=== PATIENT | male | born 1950 | race Caucasian/White ===

== ENCOUNTER 2024-11-24 12:11 | Inpatient (IN) | payer MEDICARE, OTHER ==
[~2024-11-24] VITALS: Ht 188 cm; Wt 102.3 kg
[~2024-11-24 12:11] MED LIST: ALLO-52 PO; AML5T PO; ASPI1TAB20 PO; CELE200C PO; ESOM40CA39 PO; FEXO-226 PO; LISI40TA16 PO; MET50T PO; SIMV20TA20 PO; TERA5CAP58 PO
--- NOTE | 2024-11-24 12:37 | ED.PDOC ---
SOB-HPI HPI Comments HPI: 74 y/o M, presents to the ED for CC of flu-like symptoms. Patient states, that he has been experiencing flu-like symptoms with associated symptoms of cough, fever, and weakness x3days. Patient comments on, believing he has COVID; denies any recent travel or exposure. Patient denies shortness of breath, chest pain, nasal congestion, sore throat, or N/V/D. No other symptoms or modifying factors at this time. Patient has been taking a Z-Vlad but he does not think he has been helping. Initial Vital Signs: Temp : 98.0 BP: 13/69 HR: 85 RR: 19 SpO2: 95 Past Medical History: GOUT, HTN, HLD Past Surgical History: CKA, RIGHT KNEE Social History: OCCASIONAL ETOH Medications: ZEPACLLE NORVASC ALLOPRIN Allergies: NKDA COURTIER: HPI: Poor Historian. Past Medical History: Past Surgical History: REVIEW OF SYSTEMS: CONSTITUTIONAL: Denies acute: , diaphoresis, chills, HEAD: Denies acute: headache, photophobia Eyes: Denies acute: Double vision, vision loss, eye pain, eye discharge. EARS: Denies acute: tinnitus, hearing loss, ear discharge, ear pain, THROAT: Denies acute: sore throat, swelling, difficulty swallowing , pain with swallowing, change in voice. NECK: Denies acute: neck pain, neck swelling, stiff neck. HEART: Denies acute : chest pain, palpitations, LUNGS: Denies acute: SOB, wheezing, hemoptysis ABDOMEN: Denies acute: abdominal pain, Nausea, Vomiting, diarrhea, melena , hematemesis, hematochezia SKIN: Denies acute: rash, redness, lesions, itchiness. EXTREMITIES: Denies acute: calf pain, numbness, tingling, weakness, denies pain in extremity. Denies acute: Low back pain. Neuro: Denies acute: focal neurological deficit, motor or sensory focal neurological deficit, tremors, seizure like activity, confusion, dizziness, change in mental status, loss of bowel or bladder function, cauda equina like symptoms. : Denies acute: dysuria, hematuria, flank pain, increase in urinary frequency. PSYCH: Denies acute: hallucination, suicidal ideation, homicidal ideation. PHYSICAL EXAM: General: no acute distress, awake and alert. Head: normocephalic, atraumatic. Neck: supple, trachea is midline, no swelling. Throat: Normal phonation. Eyes:, no erythema, no purulent discharge, no proptosis, no icterus. Heart: regular rate, regular rhythm, no significant murmur appreciated. Lungs: no apparent respiratory distress, Able to speak in full sentences. No wheezing, no rhonchi, no crackles. No stridors Clear to auscultation bilaterally. Abdomen: non tender to palpation, non distended, soft, no guarding, no rebound, + bowel sounds. Neuro: Awake, Alert, oriented to name, self, situation, follows commands GCS=15. Speech is normal. Skin: no petechia, no purpura, no cyanosis, non-pale, not jaundice. Lower extremities: --no - Pitting edema no deformity, no focal swelling, no calf TTP. Makes eye contact. moves all four extremities. Face: no apparent facial droop. Ambulating in the ED independently. ED COURSE: Chief Complaint: Flu like Time Seen by MD: 12:30 Reviewed notes: Nurses Notes, Allergies Information Source: Patient Mode of Arrival: Ambulatory Severity: Moderate Timing: Days Duration: Since onset PE Risk Factors: None History of: None Prehospital treatment: None Associated Signs and Symptoms: Fever, Cough If cough with SOB: Non-Productive Was a procedure done? Was a procedure done?: No Differential Dx Differential Diagnosis: Asthma, Bronchitis, CHF, COPD, Hyperventilation, Pne umonia, Pneumothorax, Pulmonary Embolism, Respiratory Distress, Sinusitis, Allergic Rhinitis, Pharyngitis, URI X-Ray, Labs, Meds, VS Vital Signs Date Time Temp Pulse Resp B/P (MAP) Pulse Ox O2 Delivery O2 Flow Rate FiO2 11/24/24 12:44 98.0 85 19 137/69 (91) 95 Lab Test 11/24/24 15:20 11/24/24 13:13 11/24/24 13:03 11/24/24 12:37 Range/Units Troponin I High Sensitivity 6 6 </=54 ng/L White Blood Count 8.9 4.4-10.8 10^3/uL Red Blood Count 4.30 L 4.5-5.90 10^6/uL Hemoglobin 14.0 13.5-17.5 g/dL Hematocrit 41.8 41.0-53.0 % Mean Corpuscular Volume 97.2 80.0-100.0 fL Mean Corpuscular Hemoglobin 32.7 H 28.0-32.0 pg Mean Corpuscular Hemoglobin Concent 33.6 32.0-36.0 g/dL Red Cell Distribution Width 13.6 11.8-14.3 % Platelet Count 231 140-450 10^3/uL Mean Platelet Volume 9.1 6.9-10.8 fL Neutrophils (%) (Auto) 75.3 37.0-80.0 % Lymphocytes (%) (Auto) 11.2 10.0-50.0 % Monocytes (%) (Auto) 11.2 0.0-12.0 % Eosinophils (%) (Auto) 1.8 0.0-7.0 % Basophils (%) (Auto) 0.5 0.0-2.0 % Neutrophils # (Auto) 6.7 1.6-8.6 10 ^3/uL Lymphocytes # (Auto) 1.0 0.4-5.4 10 ^3/uL Monocytes # (Auto) 1.0 0-1.3 10 ^3/uL Eosinophils # (Auto) 0.2 0-0.8 10 ^3/uL Basophils # (Auto) 0 0-0.2 10 ^3/uL Nucleated Red Blood Cells 0.0 % Sodium Level 139 136-145 mmol/L Potassium Level 4.2 3.5-5.1 mmol/L Chloride Level 107 98-107 mmol/L Carbon Dioxide Level 21 20-31 mmol/L Anion Gap 11 5-15 Blood Urea Nitrogen 82 *H 9-23 mg/dL Creatinine 2.76 H 0.700-1.30 mg/dL Glomerular Filtration Rate Calc 24 >90 mL/min BUN/Creatinine Ratio 29.7 H 10.0-20.0 Serum Glucose 117 H 74-106 mg/dL Lactic Acid Level 1.0 0.4-2.0 mmol/L Calcium Level 9.6 8.7-10.4 mg/dL Total Bilirubin 0.3 0.2-1.0 mg/dL Aspartate Amino Transferase (AST) 22 13-40 U/L Alanine Aminotransferase (ALT) 31 7-40 U/L Alkaline Phosphatase 120 H 46-116 U/L B-Type Natriuretic Peptide 26.11 0-100 pg/mL Total Protein 7.2 5.7-8.2 g/dL Albumin 4.5 3.2-4.8 g/dL Blood Gas Specimen Type Arterial Blood Gas Sample Site Left radial Blood Gas Patient Temperature 37.0 Arterial Blood Date Drawn [id number] Arterial Blood pH 7.371 7.350-7.450 Arterial Blood Partial Pressure CO2 28.2 L 35.0-48.0 mmHg Arterial Blood Partial Pressure O2 87.4 83.0-108.0 mmHg Arterial Blood HCO3 16.0 L 21.0-28.0 mmol/L Arterial Blood Oxygen Saturation 96.5 94.0-98.0 % Arterial Blood Base Excess -7.7 L -2.0-3.0 mmol/L Arterial Blood Oxyhemoglobin 95.1 94.0-98.0 % Arterial Blood Carboxyhemoglobin 0.9 0.5-1.5 % Arterial Blood Methemoglobin 0.5 0.0-1.5 % Spenser Test Yes Blood Gas Total Hemoglobin 14.10 13.5-17.5 g/dL Blood Gas Liter Flow 0.00 Blood Gas Modality Room air FiO2 % 21.0 Influenza Type A Antigen Negative Negative Influenza Type B Antigen Negative Negative SARS-CoV-2 Antigen (Rapid) Negative NEGATIVE [place] [address] Ph: [phone] DIAGNOSTIC IMAGING Diagnostic Imaging Report : [id number] Signed PATIENT: SERGIO PALMER ACCT: [id number] UNIT: [id number] : 1950 LOC: ER ROOM / BED: / AGE / SEX: 74 / M ADM STATUS: REG ER SERVICE 1218 ORDERING PHYSICIAN: KENNEDY THOMPSON DO PROCEDURE(s): CXRP - CHEST PORTABLE REASON: cough/fever/sob ORDER NUMBER(s): [id number], ACCESSION NUMBER(s): [id number] EXAM: XY CHEST PORTABLE Indication: cough/fever/sob Technique: Single frontal view of the chest was obtained Comparison: None FINDINGS: Lines and Tubes: None Lungs: No focal consolidation. Pleura: No effusion. No pneumothorax. Cardiomediastinal contours: Unremarkable Bones: No acute osseous abnormality. IMPRESSION: No acute cardiopulmonary disease. ATED BY: AALIYAH CUEVAS MD DICTATED DATE/TIME: 11/24/24 130 SIGNED BY: AALIYAH CUEVAS MD SIGNED DATE/TIME: 11/24/24 130 CC: Time of 1ST Reevaluation: 13:00 Reevaluation 1ST: Unchanged Patient Education/Counseling: Diagnosis, Treatment Family Education/Counseling: Other Comments Patient presented with the above HPI.---cough/generalized weakness---workup was initiated. patient was found with the above mentioned diagnosis. the following medications were ordered: please refer to order lists of meds and tests obtained by myself Dr. Thompson. Patient ED course and VS have been stabilized. Patient has been reassessed in the ED and remained in a stable condition. Pertinent incidental findings were discussed with the patient and/or family. Patient/family voices understanding and is agreeable with plan. Patient has been observed in the ED adequate length of time to insure improvement/stability. Escalation of care considered: Consideration of escalation to observation or admission Patient was ADMITTED to the medicine team for further evaluation and treatment of their presentation. All the reports of any imaging studies that were ordered by myself were reviewed by myself. Departure 1 Departure Time of Disposition: 14:17 Impression: Primary Impression: Acute renal insufficiency Additional Impression: Generalized weakness Disposition: ADMITTED INPATIENT Admit to: [facility] Condition: Guarded Additional Instructions: [place] [address] Ph: [phone] DIAGNOSTIC IMAGING Diagnostic Imaging Report : [id number] Signed PATIENT: SERGIO PALMER ACCT: [id number] UNIT: [id number] : 1950 LOC: ER ROOM / BED: / AGE / SEX: 74 / M ADM STATUS: REG ER SERVICE 1218 ORDERING PHYSICIAN: KENNEDY THOMPSON DO PROCEDURE(s): CXRP - CHEST PORTABLE REASON: cough/fever/sob ORDER NUMBER(s): [id number], ACCESSION NUMBER(s): [id number] EXAM: XY CHEST PORTABLE Indication: cough/fever/sob Technique: Single frontal view of the chest was obtained Comparison: None FINDINGS: Lines and Tubes: None Lungs: No focal consolidation. Pleura: No effusion. No pneumothorax. Cardiomediastinal contours: Unremarkable Bones: No acute osseous abnormality. IMPRESSION: No acute cardiopulmonary disease. ATED BY: AALIYAH CUEVAS MD DICTATED DATE/TIME: 11/24/24 1301 SIGNED BY: AALIYAH CUEVAS MD SIGNED DATE/TIME: 11/24/24 1301 CC: Discharged With: Self Critical Care Note Critical Care Time?: No Heart Score Heart Score: Heart Score Response (Comments) Value History N/A 0 EKG N/A 0 Age N/A 0 Risk Factors N/A 0 Troponin N/A 0 Total 0 I personally scribed for KENNEDY THOMPSON DO ([email or web address]) on 11/24/24 at 12:37. Electronically submitted by Nisha Shukla ([email or web address]). I personally scribed for KENNEDY THOMPSON DO ([email or web address]) on 11/24/24 at 15:33. Electronically submitted by Nisha Shukla ([email or web address]). KENNEDY THOMPSON DO Nov 24, 2024 12:37
--- NOTE | 2024-11-24 13:02 | DVH ---
EXAM: XY CHEST PORTABLE Indication: cough/fever/sob Technique: Single frontal view of the chest was obtained Comparison: None FINDINGS: Lines and Tubes: None Lungs: No focal consolidation. Pleura: No effusion. No pneumothorax. Cardiomediastinal contours: Unremarkable Bones: No acute osseous abnormality. IMPRESSION: No acute cardiopulmonary disease.
[2024-11-24 13:07] LABS: Base Excess -7.7 mmol/L (-2.0-3.0)
[2024-11-24 13:26] LABS: COVID19 ANTIGEN SOFIA FIA NEGATIVE (NEGATIVE); Rapid Influenza A Negative (Negative); Rapid Influenza B Negative (Negative)
[2024-11-24 13:47] LABS: Basophils # (auto) 0 10 ^3/uL (0-0.2); Basophils % (auto) 0.5 % (0.0-2.0); Eosinophils # (auto) 0.2 10 ^3/uL (0-0.8); Eosinophils % (auto) 1.8 % (0.0-7.0); Hematocrit 41.8 % (41.0-53.0); Lymphocytes % (auto) 11.2 % (10.0-50.0); Mean Corpuscular Hemoglobin 32.7 pg (28.0-32.0); Mean Corpuscular Hgb Conc. 33.6 g/dL (32.0-36.0); Mean Corpuscular Volume 97.2 fL (80.0-100.0); Monocytes % (auto) 11.2 % (0.0-12.0); Neutrophils # (auto) 6.7 10 ^3/uL (1.6-8.6); Neutrophils % (auto) 75.3 % (37.0-80.0); Platelet Count (auto) 231 10^3/uL (140-450); Red Cell Distribution Width 13.6 % (11.8-14.3); White Blood Cell 8.9 10^3/uL (4.4-10.8)
[2024-11-24 13:59] LABS: Alanine Aminotransferase 31 U/L (7-40); Albumin 4.5 g/dL (3.2-4.8); Anion Gap 11 (5-15); Aspartate Aminotransferase 22 U/L (13-40); BUN/Creatinine Ratio 29.7 (10.0-20.0); Calcium 9.6 mg/dL (8.7-10.4); Carbon Dioxide 21 mmol/L (20-31); Chloride 107 mmol/L (98-107); Potassium 4.2 mmol/L (3.5-5.1); Sodium 139 mmol/L (136-145)
[2024-11-24 14:00] LABS: Bilirubin, Total 0.3 mg/dL (0.2-1.0); Total Protein 7.2 g/dL (5.7-8.2)
[2024-11-24 14:07] LABS: Alkaline Phosphatase 120 U/L (46-116); Blood Urea Nitrogen 82 mg/dL (9-23); Glucose 117 mg/dL (74-106)
[2024-11-24] MEDS: SODIUM CHLORIDE 0.9% 1,000 ML IV ONE ×2 (14:30→21:00)
[2024-11-24] MEDS: HYDROcodone-ACET 5/325MG TAB PO ONE ×2 (20:51→21:28)
[2024-11-24] MEDS ORDERED: ACETAMINOPHEN 325 MG TAB PO PRN (21:00)
--- NOTE | 2024-11-24 21:43 | DVHHPRES ---
History of Present Illness Resident Creating Document: YENNIFER FINN RESIDENT History of Present Illness This is a 74-year-old male with past medical history of hypertension, dyslipidemia, CKD, gout who presented to the ED due to flu-like symptoms. The patient reports that the symptoms started three days ago and works consistent with dry cough without sputum production associated with fever and chills. The patient also reported generalized weakness and fatigue. Patient also reports cervical pain likely due to cervical arthritis. The patient denied nausea/vomiting, chest pain, abdominal pain or any other additional symptoms. Initial labs were grossly unremarkable except for BUN and creatinine which were 82 and 2.76 respectively. Troponins came back negative, BNP was 26.4 liver function is unremarkable and COVID and flu test came back negative. Upon my examination, the patient is saturating 95% on room air, but the patient reports generalized weakness, fatigue and malaise. We start the patient on IV fluids, acetaminophen for symptom control and pain management. We will admit the patient for further assessment and management of possible upper viral respiratory infection. Past medical history: Hypertension, dyslipidemia, CKD, gout Home medications: Hydralazine 50 mg t.i.d., lisinopril 10 mg daily, amlodipine 5 mg daily, atorvastatin 40 mg daily, Jardiance 10 mg daily, aspirin 81 mg daily, clopidogrel 75 mg daily Social history: Denies smoking, alcohol or drug intake. Cardiovascular: HTN, hyperipidemia Rheumatologic: Gout Renal/: Chronic renal insuff Past Surgical History: None Family History: None Smoke: No ALCOHOL: none Drugs: None Lives: with Family Domestic Violence: Neg Review of Systems Constitutional: Yes: Weakness, Malaise; No: Fever, Chills, Sweats, Other Eyes: No: Pain, Vision change, Conjunctivae inflammation, Eyelid inflammation, Other, Redness ENT: No: Ear pain, Ear discharge, Nose pain, Nose discharge, Nose congestion, Mouth pain, Mouth swelling, Throat pain, Throat swelling, Other Respiratory: Cough, Dry, SOB with excertion; No: Shortness of breath, Wheezing, Hemoptysis, Pleuritic Pain, Sputum, Wheezing, Other Cardiovascular: No: Chest Pain, Palpitations, Orthopnea, Paroxysmal Noc. Dyspnea, Edema, Lt Headedness, Other Gastrointestinal: No: Nausea, Vomiting, Abdominal Pain, Diarrhea, Constipation, Melena, Hematochezia, Other Genitourinary: No Dysuria, No Frequency, No Incontinence, No Hematuria, No Retention, No Other Musculoskeletal: No: other, neck pain, shoulder pain, arm pain, back pain, hand pain, leg pain, foot pain Skin: No: Rash, Lesions, Jaundice, Bruising, Other Neurological: Weakness; No: Numbness, Incoordination, Change in speech, Confusion, Seizures, Other Allergies: Coded Allergies: NO KNOWN ALLERGIES (Unverified , 07/20/16) Medications Current Medications Medications Dose Ordered Sig/Luz Route Start Time Stop Time Status Last Admin Dose Admin Acetaminophen 650 mg Q6HP PRN PO 11/24/24 21:00 Exam Vital Signs Vital Signs Date Time Temp Pulse Resp B/P (MAP) Pulse Ox O2 Delivery O2 Flow Rate FiO2 11/24/24 12:44 98.0 85 19 137/69 (91) 95 General Appearance: Alert, Oriented X3, Cooperative, No acute distress HEENT: Atraumatic, PERRLA, EOMI, Mucous membr. moist/pink Respiratory: Clear to auscultation, Normal air movement Cardiovascular: Regular rate, Normal S1, Normal S2, No murmurs Abdominal: Normal bowel sounds, Soft, No tenderness, No hepatospenomegaly Extremities: No clubbing, No cyanosis, No edema, Normal pulses, No tenderness/swelling Skin: No rashes, No breakdown, No significant lesion Neuro: Normal gait, Normal speech, Strength at 5/5 X4 ext, Normal tone, Sensa tion intact, Cranial nerves 3-12 NL, Reflexes 2+ Psych/Mental Status: Mental status NL, Mood NL Labs/Xrays Labs Test 11/24/24 15:20 11/24/24 13:13 11/24/24 13:03 11/24/24 12:37 Range/Units Troponin I High Sensitivity 6 </=54 ng/L White Blood Count 8.9 4.4-10.8 10^3/uL Red Blood Count 4.30 L 4.5-5.90 10^6/uL Hemoglobin 14.0 13.5-17.5 g/dL Hematocrit 41.8 41.0-53.0 % Mean Corpuscular Volume 97.2 80.0-100.0 fL Mean Corpuscular Hemoglobin 32.7 H 28.0-32.0 pg Mean Corpuscular Hemoglobin Concent 33.6 32.0-36.0 g/dL Red Cell Distribution Width 13.6 11.8-14.3 % Platelet Count 231 140-450 10^3/uL Mean Platelet Volume 9.1 6.9-10.8 fL Neutrophils (%) (Auto) 75.3 37.0-80.0 % Lymphocytes (%) (Auto) 11.2 10.0-50.0 % Monocytes (%) (Auto) 11.2 0.0-12.0 % Eosinophils (%) (Auto) 1.8 0.0-7.0 % Basophils (%) (Auto) 0.5 0.0-2.0 % Neutrophils # (Auto) 6.7 1.6-8.6 10 ^3/uL Lymphocytes # (Auto) 1.0 0.4-5.4 10 ^3/uL Monocytes # (Auto) 1.0 0-1.3 10 ^3/uL Eosinophils # (Auto) 0.2 0-0.8 10 ^3/uL Basophils # (Auto) 0 0-0.2 10 ^3/uL Nucleated Red Blood Cells 0.0 % Sodium Level 139 136-145 mmol/L Potassium Level 4.2 3.5-5.1 mmol/L Chloride Level 107 98-107 mmol/L Carbon Dioxide Level 21 20-31 mmol/L Anion Gap 11 5-15 Blood Urea Nitrogen 82 *H 9-23 mg/dL Creatinine 2.76 H 0.700-1.30 mg/dL Glomerular Filtration Rate Calc 24 >90 mL/min BUN/Creatinine Ratio 29.7 H 10.0-20.0 Serum Glucose 117 H 74-106 mg/dL Lactic Acid Level 1.0 0.4-2.0 mmol/L Calcium Level 9.6 8.7-10.4 mg/dL Total Bilirubin 0.3 0.2-1.0 mg/dL Aspartate Amino Transferase (AST) 22 13-40 U/L Alanine Aminotransferase (ALT) 31 7-40 U/L Alkaline Phosphatase 120 H 46-116 U/L B-Type Natriuretic Peptide 26.11 0-100 pg/mL Total Protein 7.2 5.7-8.2 g/dL Albumin 4.5 3.2-4.8 g/dL Blood Gas Specimen Type Arterial Blood Gas Sample Site Left radial Blood Gas Patient Temperature 37.0 Arterial Blood Date Drawn [id number] Arterial Blood pH 7.371 7.350-7.450 Arterial Blood Partial Pressure CO2 28.2 L 35.0-48.0 mmHg Arterial Blood Partial Pressure O2 87.4 83.0-108.0 mmHg Arterial Blood HCO3 16.0 L 21.0-28.0 mmol/L Arterial Blood Oxygen Saturation 96.5 94.0-98.0 % Arterial Blood Base Excess -7.7 L -2.0-3.0 mmol/L Arterial Blood Oxyhemoglobin 95.1 94.0-98.0 % Arterial Blood Carboxyhemoglobin 0.9 0.5-1.5 % Arterial Blood Methemoglobin 0.5 0.0-1.5 % Spenser Test Yes Blood Gas Total Hemoglobin 14.10 13.5-17.5 g/dL Blood Gas Liter Flow 0.00 Blood Gas Modality Room air FiO2 % 21.0 Influenza Type A Antigen Negative Negative Influenza Type B Antigen Negative Negative SARS-CoV-2 Antigen (Rapid) Negative NEGATIVE Assessment/Plan Assessment/Plan Assessment/Plan Acute respiratory distress likely due to upper respiratory infection -Reported fever/chills, gen fatigue and weakness -initial chest x ray showing no evidence of solid consolidations -Covid and FLU came back negative -Currently on room air sat 95% -Start azithromycin IV -Monitor SO2 saturation -Acetaminophen for symptom control KRYSTAL on CKD stage IIIB -BUN 82, creatinine 2.76 -start IV fluids -monitor kidney function Primary hypertension Resume home meds -start lisinopril 10 mg daily -start amlodipine 5 mg daily -start hydralazine 50 mg t.i.d. -Monitor BP Dyslipidemia -ordered lipid panel -start atorvastatin 40 mg daily Chronic gout, stable -monitor Goals of care discussed with the patient at bedside for >30min, FULL CODE Plan discussed with Dr. Aguilera Plan discussed with: Patient My Orders Orders - YENNIFER FINN Procedure Category Date Status Time Admit ADMIT 11/24/24 Transmitted 20:51 Code Status CODE 11/24/24 Transmitted 20:51 Vital Signs BELTRAN 11/24/24 In Process 20:51 Review Orders With BELTRAN 11/24/24 In Process . 20:51 Encourage Activity As BELTRAN 11/24/24 In Process Tolerate 20:51 Regular Diet DIET 11/25/24 Transmitted Breakfast Acetaminophen Tablet PHA 11/24/24 In Process (Tylenol Tablet) 21:00 Notify Of Changes BELTRAN 11/24/24 In Process From Base 20:51 Advance Directive BELTRAN 11/24/24 In Process 20:51 Urinalysis LAB 11/24/24 Logged 20:51 Complete Blood Count LAB 11/25/24 Verified 04:00 Lipid Panel LAB 11/24/24 Logged 20:51 Patient Condition ORDERS 11/24/24 Transmitted 20:51 Allergies BELTRAN 11/24/24 In Process 20:51 Drug Screen LAB 11/24/24 Logged 20:51 Hemoglobin A1c LAB 11/24/24 Logged 20:51 NS PHA 11/24/24 Transmitted 21:00 Aspirin Tablet PHA 11/25/24 Transmitted 10:00 Atorvastatin (Lipitor) PHA 11/25/24 Transmitted 10:00 Lisinopril Tablet PHA 11/25/24 Transmitted (Zestril Tablet) 10:00 Amlodipine Tablet PHA 11/24/24 Transmitted (Norvasc Tablet) 22:00 Clopidogrel Bisulfate PHA 11/25/24 Transmitted (Plavix) 10:00 Hydralazine Hcl PHA 11/24/24 Transmitted Tablet (Apresoline 22:30 Date of Service: Nov 24, 2024 Billing Provider: NELLIE AGUILERA MD Common Visit Codes: [id number] INP/OBS CARE (HIGH) Secondary Visit Codes: [id number] CARE PLAN 30 MINUTES YENNIFER FINN RESIDENT Nov 24, 2024 21:43 NELLIE AGUILERA MD Nov 25, 2024 08:42
[2024-11-24 21:53] LABS: LDL Cholesterol 47 mg/dL (< 100)
[2024-11-24 21:54] LABS: Cholesterol 97 mg/dL (< 200); HDL Cholesterol 27 mg/dL (40-59); Triglycerides 208 mg/dL (< 150)
[2024-11-25] MEDS: amLODIPine BESYLATE 5 MG TAB PO SCH (00:06)
[2024-11-25] MEDS: hydrALAZINE HCL 25 MG TAB PO SCH (00:07)
[2024-11-25 00:14] VITALS: BP 125/63; PULSE 87; RESP 20; TEMP 99.4; O2SAT 93
[2024-11-25] MEDS ORDERED: ASPirin 81 mg TAB PO SCH (10:00)
[2024-11-25] MEDS ORDERED: CLOPIDOGREL BISULFATE 75 MG TAB PO SCH (10:00)
[2024-11-25] MEDS ORDERED: amLODIPine BESYLATE 5 MG TAB PO SCH (10:00)
[2024-11-25] MEDS ORDERED: LISINOPRIL 5 MG TAB PO SCH (10:00)
[2024-11-25] MEDS ORDERED: ATORVASTATIN 20 MG TAB PO SCH (22:00)
== END 2024-11-25 02:00 | disposition left against medical advice (07) | DRG 153 ==
LOC: ER 12:17 → OVERFLOW 20:51
PROVIDERS: ADMIT Student in an Organized Health Care Education/Training Program; ATTEND Emergency Medicine
DX: J06.9 Acute upper respiratory infection, unspecified (principal); N17.9 Acute kidney failure, unspecified; I12.9 Hypertensive chronic kidney disease with stage 1 through stage 4 chronic kidney disease, or unspecified chronic kidney disease; E78.5 Hyperlipidemia, unspecified; Z20.822 Contact with and (suspected) exposure to COVID-19; M1A.9XX0 Chronic gout, unspecified, without tophus (tophi); N18.32 Chronic kidney disease, stage 3b; Z53.29 Procedure and treatment not carried out because of patient's decision for other reasons
CPT/HCPCS: 36415; 36600; 71045; 80053; 80061; 82805; 83036; 83605; 83880; 84484; 85025; 87426; 87804; 96360; 96361; G0378